=== PATIENT | male | born 1955 | race Caucasian/White ===

== ENCOUNTER 2024-11-02 09:24 | Emergency (ER) | payer OTHER, SELFPAY ==
[2024-11-02 09:30] VITALS: BP 155/102
[2024-11-02 09:58] LABS: % Basophils 0.2 % (0-2); % Eosinophils 0.1 % (0-6); % Immature Granulocytes 0.3 % (0-0.5); % Lymphocytes 6.3 % (20.5-51.1); % Monocytes 5.2 % (1.7-9.3); % Neutrophils 87.9 % (42.2-75.2); Absolute Lymphocytes 0.8 10^3/uL (1.2-3.4); Absolute Monocytes 0.6 10^3/uL (0.1-0.6); Absolute Neutrophils 10.8 10^3/uL (1.4-6.5); Hematocrit 52.2 % (39.0-52.0); Hemoglobin 17.7 g/dL (13.0-18.0); Mean Corp Hgb Conc. 33.9 g/dL (33.0-37.0); Mean Corpuscular Hgb 31.6 pg (27.0-31.0); Mean Corpuscular Volume 93.2 fL (80.0-94.0); Mean Platelet Volume 10.1 fL (7.4-10.4); Nucleated Red Blood Cells % 0 % (-); Platelet Count 332 10^3/uL (130-400); White Blood Cell Count 12.2 10^3/uL (4.8-10.8)
[2024-11-02 10:02] LABS: ALT (SGPT) 22 U/L (0-50); AST (SGOT) 29 U/L (17-59); Albumin 5.1 g/dl (3.5-5.0); Alkaline Phosphatase 66 U/L (38-126); Blood Urea Nitrogen 37 mg/dl (9-20); Calcium 10.6 mg/dl (8.4-10.2); Carbon Dioxide 31 mmol/L (22-30); Chloride 96 mmol/L (98-107); Glucose 142 mg/dl (70-99); Sodium 140 mmol/L (135-145); Total Bilirubin 1.3 mg/dl (0.2-1.3); Total Protein 7.8 g/dl (6.3-8.2); eGFR 58.73
--- NOTE | 2024-11-02 11:26 | ED.GENMED ---
History of Present Illness
General
Chief Complaint: Abdominal Symptoms
Time Seen by Provider: 11/02/24 10:57
History of Present Illness
History of Present Illness:
69-year-old male presents to the emergency department for evaluation of intractable vomiting for the past 2 days. He reports that prior to the onset of symptoms he had diffuse lower cramping that is since subsided. Now denies any pain simply
intractable vomiting. No fevers or chills. No diarrhea. No lower urinary tract voiding symptoms. 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
Review of Systems
Review of Systems
Allergies reviewed?: Yes
All Other Systems: ROS reviewed and negative except as documented in HPI and ROS
Phy Exam
Physical Exam
Physical Exam:
GEN: Well appearing, NAD, WDWN
HEENT: Oral mucosa moist, no scleral icterus
Cardiac: Regular rate
Lung: No respiratory distress, no tachypnea
Abdomen: Soft, grossly nontender, upper abdominal ventral hernia
MSK: No gross deformity or injuries
Skin: Good color, no pallor or jaundice, no rashes
Neuro: AO x3, moves all extremities freely
Psych: Calm, cooperative
Course
Orders/Labs/Results
Orders:
Orders
11/02/24 09:35
Complete Blood Count/With Diff Urgent
Comprehensive Metabolic Panel Urgent
11/02/24 11:21
0.9% Sodium Chloride 1000 ml [Nss] 1,000 ml IV BOLUS
Ondansetron Injectable [Zofran] 4 mg IV NOW STA
11/02/24 12:38
Famotidine [Pepcid] 20 mg IV NOW STA
Pantoprazole [Protonix IV] 40 mg IV NOW STA
Abnormal Lab Results
11/02/24
09:35
WBC 12.2 H 10^3/uL
(4.8-10.8)
Hct 52.2 H %
(39.0-52.0)
MCH 31.6 H pg
(27.0-31.0)
Absolute Neuts (auto) 10.8 H 10^3/uL
(1.4-6.5)
Absolute Lymphs (auto) 0.8 L 10^3/uL
(1.2-3.4)
Neutrophils % 87.9 H %
(42.2-75.2)
Lymphocytes % 6.3 L %
(20.5-51.1)
Chloride 96 L mmol/L
(98-107)
Carbon Dioxide 31 H mmol/L
(22-30)
BUN 37 H mg/dl
(9-20)
Glucose 142 H mg/dl
(70-99)
Calcium 10.6 H mg/dl
(8.4-10.2)
Albumin 5.1 H g/dl
(3.5-5.0)
11/02/24 09:35
11/02/24 09:35
Vital Signs
Initial and Last Documented VS:
Initial Vital Signs
Temp Pulse Resp BP Pulse Ox
97.5 F 85 16 155/102 98
11/02/24 09:30 11/02/24 09:30 11/02/24 09:30 11/02/24 09:30 11/02/24 09:30
Last Documented Vital Signs
Temp Pulse Resp BP Pulse Ox
97.5 F 82 18 160/94 98
11/02/24 09:30 11/02/24 15:38 11/02/24 15:38 11/02/24 15:38 11/02/24 15:38
MDM/Problems Addressed
MDM/Problems Addressed:
Likely self-limited viral syndrome. He has a benign abdominal exam thus no indication for CT scan at this time. Labs are reassuring. Improved with IV fluids and antiemetics as well as anti-GERD medications. Discussed supportive care
*Critical Care Note
Total Time (30-74mins, 75-104mins- exclusive of procedures): Not Applicable
ED Attending Note
-
Portions of this chart may have been created with voice recognition software.� Occasional wrong word or��sound alike� substitutions may have occurred due to the inherent limitations of voice recognition software.
Discharge Plan
Departure
Patient Disposition: Home (Routine Discharge)
Date of Disposition: 11/02/24
Time of Disposition: 15:15
Patient with high blood pressure during this ER visit?: No
Discharge Problem:
Gastroenteritis
Instructions: Nausea and Vomiting, Adult (DC)
Prescriptions:
New
ondansetron 4 mg tablet,disintegrating
4 mg PO TIDPRN PRN (Reason: nausea/vomiting) Qty: 10 0RF
Referrals:
Gen Pena, DO [Family Provider] -
Interventions
Interventions:
*Risk Screen - Suicide Last Done: 11/02/24 09:32
*General Assessment Last Done: 11/02/24 11:53
*Neglect/Abuse Screening Last Done: 11/02/24 09:32
*ED COVID-19 Vaccine History Last Done: 11/02/24 11:53
*Nursing Disposition Last Done: 11/02/24 15:38
ZB-Oppeik-Lolnbbuqeg Assessment Last Done: 11/02/24 11:53
Discharge Date and Time
Discharge Date/Time: 11/02/24 15:40
Print Language: GUATEMALAN
[2024-11-02] MEDS: ZOFRAN 4 MG IV (11:50)
[2024-11-02] MEDS: NSS 1000 IV (11:50)
[2024-11-02 11:53] VITALS: BP 165/104
[2024-11-02] MEDS: PROTONIX IV 40 MG IV (12:45)
[2024-11-02] MEDS: PEPCID 20 MG IV (12:45)
[2024-11-02 15:38] VITALS: BP 160/94
== END 2024-11-02 15:40 | disposition home or self-care (01) ==
LOC: EMR 09:24
PROVIDERS: Emergency Medicine; EMERGENCY PHYSICIAN Emergency Medicine; FAMILY PHYSICIAN Family Medicine
DX: K52.9 Noninfective gastroenteritis and colitis, unspecified (principal); Z90.81 Acquired absence of spleen
CPT/HCPCS: 96374; 96375; 96361; 99284; 80053; 85025

== ENCOUNTER 2024-11-05 04:33 | Inpatient (IN) | payer OTHER, SELFPAY ==
[2024-11-04 22:29] VITALS: BP 153/99
[2024-11-04 23:05] LABS: % Basophils 0.4 % (0-2); % Eosinophils 0.1 % (0-6); % Immature Granulocytes 0.4 % (0-0.5); % Lymphocytes 16.5 % (20.5-51.1); % Neutrophils 70.6 % (42.2-75.2); Absolute Lymphocytes 1.9 10^3/uL (1.2-3.4); Absolute Monocytes 1.4 10^3/uL (0.1-0.6); Hematocrit 50.8 % (39.0-52.0); Hemoglobin 17.3 g/dL (13.0-18.0); Mean Corp Hgb Conc. 34.1 g/dL (33.0-37.0); Mean Corpuscular Hgb 31.7 pg (27.0-31.0); Mean Corpuscular Volume 93.2 fL (80.0-94.0); Mean Platelet Volume 10.2 fL (7.4-10.4); Nucleated Red Blood Cells % 0 % (-); Platelet Count 276 10^3/uL (130-400); Red Blood Cell Count 5.45 10^6/uL (4.70-6.10); Red Cell Dist. Width 12.7 % (11.5-14.5); White Blood Cell Count 11.3 10^3/uL (4.8-10.8)
[2024-11-04 23:18] LABS: ALT (SGPT) 32 U/L (0-50); AST (SGOT) 34 U/L (17-59); Albumin 5.1 g/dl (3.5-5.0); Alkaline Phosphatase 76 U/L (38-126); Blood Urea Nitrogen 37 mg/dl (9-20); Calcium 9.8 mg/dl (8.4-10.2); Carbon Dioxide 30 mmol/L (22-30); Chloride 97 mmol/L (98-107); Glucose 133 mg/dl (70-99); Potassium 4.7 mmol/L (3.5-5.1); Sodium 137 mmol/L (135-145); Total Bilirubin 1.2 mg/dl (0.2-1.3); Total Protein 7.9 g/dl (6.3-8.2); eGFR > 60.00
[2024-11-04 23:32] LABS: Lipase 2637 U/L (23-300)
[2024-11-05] VITALS (11 sets, daily range): BP systolic 133–159; BP diastolic 84–99; BMI 25.4; BMI 25.5
[2024-11-05] MEDS: ZOFRAN 4 MG IV ×2 (00:51→02:33)
[2024-11-05] MEDS: NSS 1000 IV (00:52)
[2024-11-05] MEDS: DILAUDID 0.5 MG IV ×2 (01:01→02:34)
--- NOTE | 2024-11-05 01:29 | ED.GENMED ---
History of Present Illness
General
Chief Complaint: Abdominal Symptoms
Source: patient, records and spouse
Time Seen by Provider: 11/05/24 00:36
History of Present Illness
History of Present Illness:
69-year-old male with past medical history of hypertension presenting back to the emergency department after being seen 2 days ago for evaluation of persistent abdominal pain, nausea and vomiting and difficult time tolerating p.o. Patient was
diagnosed with possible gastroenteritis and states that while initially feeling better symptoms returned after getting home. Notes today pain was worse described to be generalized, nonradiating, constant sharp stabbing sensation. Denies any
fevers, chills, rigors. Notes recently treated for prostatitis with a 7-day course of Levaquin and had been experiencing urinary urgency/frequency at that time which is now resolved. No other new symptoms at this time.
Past History
Past History
ED Past Medical History: HTN
ED Past Surgical History: Other (Splenectomy)
Social History
Tobacco: Non-smoker
Alcohol: None
Drug: None
Personal:
Living: with family
Review of Systems
Review of Systems
All Other Systems: ROS reviewed and negative except as documented in HPI and ROS
Phy Exam
Physical Exam
Physical Exam:
GENERAL: Alert , in no apparent distress
EYE: clear conjunctiva b/l
HEAD: NCAT
ENT: o/p clr, mmm.
CARDIAC: Regular rate and rhythm .
LUNGS: Clear breath sounds bilaterally, no acute respiratory distress, no wheezes/rales/rhonchi
ABDOMEN: Firm and diffusely tender, normoactive bowel sounds, no r/g, no cvat
NEUROLOGICAL: Alert and oriented
SKIN: Warm and dry, skin intact.
MUSCULOSKELETAL: well perfused.
PSYCH: Normal and appropriate interaction.
Scores
Heart Failure Risk
Heart Failure Risk Score: Not Applicable
Heart Score for Chest Pain Patients
STEMI patient?: Not applicable
Withdrawal Assessment of Alcohol
Withdrawal Assessment Completed?: Not applicable
Course
Orders/Labs/Results
Orders:
Orders
11/04/24 22:38
Complete Blood Count/With Diff Urgent
Comprehensive Metabolic Panel Urgent
Lipase Urgent
11/05/24 00:37
CT Abd/pelvis W Iv Cont Urgent
Comment:
Reason For Exam: pancreatitis, intractable vomiting
0.9% Sodium Chloride 1000 ml [Nss] 1,000 ml IV BOLUS
Ondansetron Injectable [Zofran] 4 mg IV NOW STA
11/05/24 01:00
HYDROmorphone [Dilaudid] 0.5 mg .ROUTE .STK-MED ONE
11/05/24 01:01
HYDROmorphone [Dilaudid] 0.5 mg IV NOW STA
11/05/24 02:25
NG Tube [GI tube insertion- Treatment] ONCE
11/05/24 02:32
Ondansetron Injectable [Zofran] 4 mg .ROUTE .STK-MED ONE
11/05/24 02:33
Ondansetron Injectable [Zofran] 4 mg IV NOW STA
11/05/24 02:34
HYDROmorphone [Dilaudid] 0.5 mg IV NOW STA
11/05/24 02:45
Lactic Acid Q4H
Comment: CANCEL 2nd LACTIC ACID IF 1st LACTIC ACID IS LESS THAN 2
11/05/24 06:45
Lactic Acid Q4H
Comment: CANCEL 2nd LACTIC ACID IF 1st LACTIC ACID IS LESS THAN 2
Abnormal Lab Results
11/04/24
22:38
WBC 11.3 H 10^3/uL
(4.8-10.8)
MCH 31.7 H pg
(27.0-31.0)
Absolute Neuts (auto) 8.0 H 10^3/uL
(1.4-6.5)
Absolute Monos (auto) 1.4 H 10^3/uL
(0.1-0.6)
Lymphocytes % 16.5 L %
(20.5-51.1)
Monocytes % 12.0 H %
(1.7-9.3)
Chloride 97 L mmol/L
(98-107)
BUN 37 H mg/dl
(9-20)
Glucose 133 H mg/dl
(70-99)
Albumin 5.1 H g/dl
(3.5-5.0)
Lipase 2637 H* U/L
(23-300)
11/04/24 22:38
11/04/24 22:38
Vital Signs
Initial and Last Documented VS:
Initial Vital Signs
Temp Pulse Resp BP Pulse Ox
97.9 F 90 18 153/99 100
11/04/24 22:29 11/04/24 22:29 11/04/24 22:29 11/04/24 22:29 11/04/24 22:29
Last Documented Vital Signs
Temp Pulse Resp BP Pulse Ox
97.9 F 90 18 159/99 88
11/04/24 22:29 11/04/24 22:29 11/04/24 22:29 11/05/24 01:08 11/05/24 01:30
MDM/Problems Addressed
Differential Diagnosis Includes:
Dehydration, acute kidney injury, appendicitis, cholecystitis, pancreatitis, diverticulitis, pyelonephritis, prostatitis
MDM/Problems Addressed:
69-year-old male presenting back to the emergency department after being seen earlier in the week for persistent nausea vomiting and abdominal pain. Patient with no relief with mrca-uke-zifxozt medications. Labs were initiated on her which
revealed a leukocytosis of 11,000 and pancreatitis with a lipase level of greater than 2600. Patient denies any history of pancreatitis in the past. Given the pain as well as lab findings will obtain CT for further evaluation for potential
gallstone pancreatitis. Symptomatic control with Dilaudid, Zofran and fluids. Patient to be admitted.
*Radiology
Radiology exam reviewed: radiology read reviewed
*Pulse Oximetry
Patient hypoxic: no
*Critical Care Note
Total Time (30-74mins, 75-104mins- exclusive of procedures): Not Applicable
Data Reviewed
Review of Other/Old Records Reveals: Labs and Records
Patient Management
Discussion with other providers: Hospitalist, Solderer Assembler and Radiologist
Escalation/DeEscalation of care consider admission/obs:
Informed by radiology that patient has a small bowel obstruction likely related to an internal hernia. Lactic acid was added to lab work given the reported hernia. I notified general surgery who reviewed case and is requesting NG tube to be
placed. Surgery will see the patient in the morning. Hospitalist team was also notified and accepts patient for continued evaluation and treatment.
ED Attending Note
-
Portions of this chart may have been created with voice recognition software.� Occasional wrong word or��sound alike� substitutions may have occurred due to the inherent limitations of voice recognition software.
Discharge Plan
Departure
Patient Disposition: Admit
Date of Disposition: 11/05/24
Time of Disposition: 02:18
Presentation/result/management discussed w/ accepting MD/DO: Hospitalist
Discharge Problem:
Small bowel obstruction, Ventral hernia, Pancreatitis
Prescriptions:
No Action
ondansetron 4 mg tablet,disintegrating
4 mg PO TIDPRN PRN (Reason: nausea/vomiting) Qty: 10 0RF
Referrals:
Gen Pena, DO [Family Provider] -
Interventions
Interventions:
*Risk Screen - Suicide Last Done: 11/04/24 22:29
*General Assessment Last Done: 11/04/24 22:29
*Neglect/Abuse Screening Last Done: 11/05/24 00:56
ED- Fall Risk Assessment Last Done: 11/05/24 00:56
*ED COVID-19 Vaccine History Last Done: 11/04/24 22:29
PG-Hamsdi-Mgxwujoiua Assessment Last Done: 11/05/24 00:56
Discharge Date and Time
Print Language: DIVEHI
[2024-11-05 03:02] LABS: Lactic Acid 1.3 mmol/L (0.7-2.0)
--- NOTE | 2024-11-05 04:09 | HPS.HSE ---
Family Physician
-
Family Physician: Gen Pena
Chief Complaint
-
Abdominal pain
History of Present Illness
69-year-old with past medical history significant for hyperlipidemia, hypertension, who presents to the emergency department with abdominal pain.
Patient was seen in the ED 2 days ago for persistent abdominal pain nausea and vomiting. He had was gastroenteritis diagnosed then and was initially feeling better but ultimately his symptoms returned after returning home. Patient reports
abdominal pain that is nonradiating constant stabbing sensation. He denies any diarrhea, melena or hematochezia. Denies any fevers chills. Patient denies any chest pain. He denies shortness of breath or dyspnea on exertion.
Patient had a recent prostatitis for which he completed 7-day course of Levaquin with resolution of his urinary symptoms. Spouse believes pancreatitis may be due to Levaquin.
He denies history of gallstones. Denies alcohol use.
In the emergency department he was afebrile, blood pressure was 160/99 with a pulse of 90 satting 96% on room air. CBC is unremarkable. Electrolytes were within normal limits with normal creatinine of 1.1. Glucose was normal. Lipase was elevated
at [address] of the abdomen shows dilated loops of small bowel measuring up to 4.8 cm compatible with small bowel obstruction with transition point within the central abdomen likely related to internal hernia.
Medical History
Past Medical History
Past Medical History: Reports HTN and Hypercholesterolemia
Past Surgical History: Reports Orthopedic (Left ankle surgery) and Other (Splenectomy)
Social History
Tobacco: Non-smoker
Alcohol: None
Drug: None
Personal:
Living: With Family
Family History
Family History: Not pertinent
Allergies / Home Medications
Allergies reflects when Allergies were last updated in [facility].
Home Medications with original date entered in [facility]
Allergy/Medication List:
Allergies
Allergy/AdvReac Type Severity Reaction Status Date / Time
No Known Allergies Allergy Unverified 11/02/24 09:32
Home Medications
ondansetron 4 mg disintegrating tablet 4 mg PO TIDPRN PRN nausea/vomiting #10 tabs 11/02/24
Atorvastatin Calcium 20 MG Take 1 tablet by mouth once daily Orally Once a day for 90 days Active
Vitamin B Complex - as directed Orally once a week Active
Vitamin D3 50 MCG (1999 UT) 1 capsule Orally Once a day Active
Lisinopril 5 MG 1-1/2 tablets Orally Once a day for 90 days Active
Tamsulosin HCl 0.4 MG 1 capsule Orally Once a day for 30 day(s) Oct, Active
Review of Systems
-
History Source: Patient
Constitutional: Reports No Symptoms
EENT: Reports No Symptoms
Respiratory: Reports No Symptoms
Cardiac: Reports No Symptoms
Abdomen/GI: Reports Abdominal Pain, Nausea and Vomiting
: Reports No Symptoms
Musculoskeletal: Reports No Symptoms
Skin: Reports No Symptoms
Neurological: Reports No Symptoms
Endocrine: Reports No Symptoms
Hematologic/Lymphatic: Reports No Symptoms
Psych: Reports No Symptoms
Physical Exam
Vital Signs
Vital Signs
Temp Pulse Resp BP Pulse Ox
97.9 F 90 18 159/99 88
11/04/24 22:29 11/04/24 22:29 11/04/24 22:29 11/05/24 01:08 11/05/24 01:30
Physical Exam
General: Well Developed, Well Nourished, No Apparent Distress and Comfortable
HEENT: NormoCephalic, Anicteric, Moist mucous membranes and Atraumatic
Respiratory: Clear
Cardiac: S1/S2 and Regular Rhythm
GI: Soft, Non Tender and Non Distended
Rectal: Deferred by Provider
Genito-urinary: Deferred by me
Musculoskeletal: No Clubbing, No Cyanosis and No Edema
Skin: Warm
Neuro: AO x 3
Hematologic/Lymphatic: No Lymphadenopathy
Psych: Calm
Laboratory Results
-
11/04/24 22:38
11/04/24 22:38
Laboratory Results
Lactic Acid Cancelled 11/05/24 06:45
Total Bilirubin 1.2 mg/dl (0.2-1.3) 11/04/24 22:38
AST 34 U/L (17-59) 11/04/24 22:38
ALT 32 U/L (0-50) 11/04/24 22:38
Alkaline Phosphatase 76 U/L (38-126) 11/04/24 22:38
Lipase 2637 U/L (23-300) H* 11/04/24 22:38
Data Reviewed
-
Diagnostic Radiology: Image Personally Visualized and interpreted and Report Reviewed by me
CT Scan: Report Reviewed by me
Lab Data: Labs Reviewed by me
Old Records: Reviewed
Impression/Plan
-
IMPRESSION:
69-year-old with 1 week of abdominal pain found to have pancreatitis as well as possible small bowel obstruction.
PLAN:
1. Pancreatitis - Lipase > 2000, no CT findings concerning for severe pancreatitis, gall stones or biliary obstruction. No ETOH use. Pnacreatitis after 9 days of levaquin which is a possible side effect although rate ( < 1%)
- admit to med/surg
- stopped levaquin
- npo
- iv fluid with LR
- pain control and antiemetics
- advance diet pending resolution of SBO
- checking triglyceride and trending lft in am to rule out other cause
2. SBO - h/o splenectomy. Has a ventral hernia with loop of bowel with transition point. Possilby increased intra abd pressure resulted in pushing bowel into hernia. No obvious incarceration.
- NG tube placed and patient had immediate relief, with reduced gassous distension. Only small amount of billous fluid removed
- serial examinations
- NPO and IV fluids as above
- surgery consulted and aware
3. HTN
- holding lisinopril for now
DVT PPX - heparin sq
Code status - full code
[2024-11-05] MEDS: D5LR 1000 IV ×2 (09:58→17:02)
[2024-11-05] MEDS: HEPARIN 5000 UNITS SC ×2 (10:04→17:30)
--- NOTE | 2024-11-05 13:39 | CON.GS ---
Consultation
-
Date/Time Consultation Requested: 11/05/24816
Requesting Provider: Lei Landis
Reason for Consultation: sbo
Medical History
-
Chief Complaint: n/v
History of Present Illness:
Mr. Bansal is a 69 yo male with h/o splenectomy as a child after a football injury and HTN who presents through the ED with nausea and vomiting since Wednesday (11/01). He reports he was in his normal state of health when he developed a UTI and was
prescribed Levaquin for a 2 week course approximately 2 weeks ago. He took a week of this medication until Wednesday when he noted abdominal pain, GI upset and some nausea. He discontinued the medication d/t concern for side effects and while the
abdominal pain improved/resolved, nausea persisted. He presented on through the ED and discharged to home as he was feeling better with zofran. He has been intermittently vomiting since that time with recent worsening of symptoms causing
him to present through the ED again for evaluation. An ngt was placed prior to exam, with relief in symptoms of nausea. The abdomen is mildly distended on exam but nontender. He notes that he has been passing a good amount of flatus.
Past Medical History
Past Medical History: HTN and Hypercholesterolemia
Past Surgical History: Orthopedic (left finger surgery) and Other (Splenectomy at age of 7)
Social History
Tobacco: Non-Smoker
Alcohol: Occasional
Personal:
Living: With Family
Family History
Family History: Reviewed & Not Pertinent
Allergies / Home Medications
Allergy/AdvReac Type Severity Reaction Status Date / Time
No Known Allergies Allergy Unverified 11/02/24 09:32
�Medication �Instructions �Recorded �Confirmed �Type
ondansetron 4 mg disintegrating 4 mg PO TIDPRN PRN nausea/vomiting 11/02/24 11/05/24 Rx
tablet #10 tabs
atorvastatin 20 mg tablet (Lipitor) 20 mg PO QPM 11/05/24 11/05/24 History
calcium carbonate (Tums) 200 mg PO BIDPRN PRN gerd 11/05/24 11/05/24 History
lisinopril 5 mg tablet 5 mg PO DAILY 11/05/24 11/05/24 History
Review of Systems
-
History Source: Patient and Family
All other systems: Negative unless noted
A 10 point review of systems was completed, and was negative except as per HPI.
Physical Exam
Vital Signs
Temp Pulse Resp BP Pulse Ox
97.9 F 90 18 159/99 88
11/04/24 22:29 11/04/24 22:29 11/04/24 22:29 11/05/24 01:08 11/05/24 01:30
11/04/24 11/05/24 11/06/24
06:59 06:59 06:59
Actual Weight 75.9 kg
Body Mass Index (BMI) 25.4
Lab Results
11/04/24 22:38
11/04/24 22:38
WBC 11.3 10^3/uL (4.8-10.8) H 11/04/24 22:38
Hgb 17.3 g/dL (13.0-18.0) 11/04/24 22:38
Hct 50.8 % (39.0-52.0) 11/04/24 22:38
Plt Count 276 10^3/uL (130-400) 11/04/24 22:38
Abs Immat Gran (auto) 0.0 10^3/uL (0-0.05) 11/04/24 22:38
Neutrophils % 70.6 % (42.2-75.2) 11/04/24 22:38
Physical Exam
General: Well Developed and Well Nourished
HEENT: Normocephalic
GI: Soft, Non Tender, Distended (minimal) and Other (NGT with brown outputs)
Skin: Warm and Dry
Neuro: Awake, Alert and AO x 3
Psych: Calm
Data Reviewed
-
CT Scan: Image Personally Visualized and interpreted, Report Reviewed by me, Discussed with Patient and Discussed with Family
Medical Tests (Nuc Med, Echo etc): Image Personally Visualized and interpreted
Labs: Labs Reviewed by me, Discussed with Physician and Discussed with Patient
Old Records: Reviewed
Assessment / Plan
-
69 yo male with h/o splenectomy developed abdominal pain while on levaquin and discontinued use on Wednesday. Pain improved but presented with persistent nausea/vomiting. Symptomatic relief with NGT placement. Continues to pass flatus.
Lactase elevated which is consistent with pancreatitis with normal LFT's. US with distended gallbladder with small polyp but no stones. CT imaging with gallbladder not tensely distended but enlarged, no stones seen on this study. No signs of
pericholecystic edema/wall thickening to suggest cholecystitis. Low suspicion for gallstone mediated pancreatitis given these findings. Suspect secondary to recent Levaquin usage. Pain currently resolved.
CT with pSBO (adhesive) vs reactive ileus secondary to pancreatitis.
AFVSS
Leukocytosis present
--Continue NPO with NGT for decompression
--IVF while NPO
--Analgesics/Antiemetics prn
--Will follow exams/labs for improvement
No emergent surgery planned for today, will follow for continued improvement with nonoperative measures
--- NOTE | 2024-11-05 16:17 | W.PN.HOSP.TC ---
Addendum entered and electronically signed by Akin Manuel MD 11/05/24 16:32:
as per Dr. Kam, no need for abx at this time
Original Note:
Today's Communication/Plan
-
recheck labs
Assessment / Plan
Assessment / Plan
1. Pancreatitis - Lipase > 2000, no CT findings concerning for severe pancreatitis, gall stones or biliary obstruction. No ETOH use. Pancreatitis after 9 days of levaquin which is a possible side effect although rate ( < 1%)
- admit to med/surg
- stopped levaquin
- npo, NG tube decompression tocontinue
- iv fluid with LR
- pain control and antiemetics
- checking triglyceride and trending lft in am to rule out other cause
2. SBO - h/o splenectomy. Has a ventral hernia with loop of bowel with transition point. Possibly increased intra abd pressure resulted in pushing bowel into hernia. No obvious incarceration.
- NG tube placed and patient had immediate relief, with reduced gaseous distension. Only small amount of billous fluid removed
- serial examinations
- NPO and IV fluids as above
- surgery consulted and aware, reviewed. Unclear whether pancreatitis or adhesive bowel disease is cause vs effect
Will need to continue NG decompression for now, recheck labs and re-evaluate pending progression. consider obstruction series in AM depending on clinical response
CT scan:1. ACUTE SMALL BOWEL OBSTRUCTION which is likely to an obstructing adhesive band in the midabdomen. An internal hernia is an alternative diagnostic possibility.
2. Previous splenectomy.
3. LARGE 10.1 cm COMPLEX LEFT RENAL CYST (probably benign and less likely renal cell carcinoma).
4. Small 1.5 cm lesion in the right lobe of the liver (probably a benign primary hepatic tumor and less likely malignancy).
5. Moderate diverticulosis in the descending and sigmoid colon.
6. Moderately enlarged prostate gland.
7. 2.8 cm jackstone calculus in the urinary bladder.
8. Severe discogenic degenerative disease at L4/L5.
Abd US: 1. Distended gallbladder containing multiple small polyps.
2. No sonographic evidence for cholelithiasis, acute cholecystitis, or biliary obstruction.
3. Previous splenectomy.
4. Large 10.0 cm complex left lower pole renal cyst.
3. HTN
- holding lisinopril for now
DVT PPX - heparin sq
Code status - full code
reviewed multiple concerns with in room
Anticipated Discharge: > 48 hours
Subjective/Interval History
-
Date of Service: November 05, 2024
Feels much better since NG tube placed
Objective Data
-
Vital Signs:
Vital Signs
Temp Pulse Resp BP Pulse Ox
97.9 F 90 18 152/89 96
11/04/24 22:29 11/04/24 22:29 11/04/24 22:29 11/05/24 10:00 11/05/24 10:00
Review of Systems
-
History Source: Patient, Family ( at bedside) and Physician (reviewed with Dr. Kam)
Constitutional: Denies Fever
EENT: Reports No Symptoms Reported
Respiratory: Reports No Symptoms
Cardiac: Reports No Symptoms
Abdomen/GI: Reports Abdominal Pain (markedly improved); Denies Nausea or Vomiting
Skin: Reports No Symptoms
Neuro: Reports No Symptoms
Physical Exam
-
General: Well Developed, Well Nourished and No Apparent Distress
HEENT: Normocephalic, Atraumatic and Moist Mucous Membranes
Respiratory: Clear to Auscultation (on shallow respirations)
Cardiac: Regular Rhythm
GI: Soft, Nontender (to light pressure), Normal Bowel Sounds, Distended (moderately) and Other (NG tube with significant fecal drainage)
Neuro: Awake, Alert and Oriented
[2024-11-05 17:16] LABS: % Basophils 0.7 % (0-2); % Eosinophils 0.6 % (0-6); % Immature Granulocytes 0.3 % (0-0.5); % Lymphocytes 25.5 % (20.5-51.1); % Monocytes 14.8 % (1.7-9.3); % Neutrophils 58.1 % (42.2-75.2); Absolute Basophils 0.1 10^3/uL (0-0.2); Absolute Lymphocytes 1.8 10^3/uL (1.2-3.4); Absolute Neutrophils 4.1 10^3/uL (1.4-6.5); Hematocrit 44.1 % (39.0-52.0); Hemoglobin 14.9 g/dL (13.0-18.0); Mean Corp Hgb Conc. 33.8 g/dL (33.0-37.0); Mean Corpuscular Hgb 31.4 pg (27.0-31.0); Mean Corpuscular Volume 92.8 fL (80.0-94.0); Nucleated Red Blood Cells % 0 % (-); Platelet Count 244 10^3/uL (130-400); Red Blood Cell Count 4.75 10^6/uL (4.70-6.10); Red Cell Dist. Width 12.7 % (11.5-14.5)
[2024-11-05 17:24] LABS: Blood Urea Nitrogen 28 mg/dl (9-20); Calcium 8.7 mg/dl (8.4-10.2); Carbon Dioxide 33 mmol/L (22-30); Chloride 102 mmol/L (98-107); Estimated Creatinine Clearance 66 ml/min; Glucose 106 mg/dl (70-99); Lipase 632 U/L (23-300); Potassium 3.7 mmol/L (3.5-5.1); Sodium 141 mmol/L (135-145); eGFR > 60.00
[2024-11-06] MEDS: HEPARIN 5000 UNITS SC ×3 (00:28→15:57)
[2024-11-06] MEDS: D5LR 1000 IV ×2 (00:29→05:52)
--- NOTE | 2024-11-06 03:49 | PTCARENOTE ---
19:40 pt rec'vd from ER zay horn NGT, low inter suction, red/black drainage in container. IVF D5LR infusing at 150cc/hr via L AC . vs stable, denied pain. Abd hypo bs, flat firm WNL for pt some tenderness when palpated RQ. oriented to unit
[2024-11-06 05:34] LABS: Hematocrit 41.7 % (39.0-52.0); Hemoglobin 14.2 g/dL (13.0-18.0); Mean Corp Hgb Conc. 34.1 g/dL (33.0-37.0); Mean Corpuscular Hgb 32.1 pg (27.0-31.0); Mean Corpuscular Volume 94.1 fL (80.0-94.0); Mean Platelet Volume 10.4 fL (7.4-10.4); Platelet Count 221 10^3/uL (130-400); Red Blood Cell Count 4.43 10^6/uL (4.70-6.10); Red Cell Dist. Width 12.6 % (11.5-14.5); White Blood Cell Count 7.7 10^3/uL (4.8-10.8)
[2024-11-06 06:12] LABS: ALT (SGPT) 20 U/L (0-50); AST (SGOT) 24 U/L (17-59); Albumin 3.4 g/dl (3.5-5.0); Alcohol < 10 mg/dl; Alkaline Phosphatase 55 U/L (38-126); Blood Urea Nitrogen 23 mg/dl (9-20); Calcium 8.6 mg/dl (8.4-10.2); Carbon Dioxide 33 mmol/L (22-30); Chloride 103 mmol/L (98-107); Direct Bilirubin 0.3 mg/dl (0.0-0.4); Estimated Creatinine Clearance 63 ml/min; Glucose 127 mg/dl (70-99); Lipase 623 U/L (23-300); Potassium 3.7 mmol/L (3.5-5.1); Sodium 141 mmol/L (135-145); Total Protein 5.8 g/dl (6.3-8.2); Triglycerides 112 mg/dl (10-149); eGFR > 60.00
[2024-11-06 08:20] VITALS: BP 166/89
--- NOTE | 2024-11-06 09:40 | W.PN.GS2 ---
Addendum entered and electronically signed by Angel Escalante MD 11/06/24 13:41:
I saw and examined the patient independently.
The Podiatric Physician's note was reviewed and I agree with the note, assessment and plan except where noted below.
Comment: 69-year-old male presents with pancreatitis of unclear etiology Levaquin (for recent UTI) versus occult gallstone not seen on ultrasound imaging male with reactive ileus versus small bowel obstruction.
Clamp trial NG tube. If output low, okay to remove and start clears.
IV fluids.
No role for antibiotics at this time.
Out of bed and ambulate.
We reviewed signs and symptoms to look out for and possible sequela of pancreatitis.
If he has recurrent episodes of pancreatitis despite stopping Levaquin he understands that he should see general surgeon. In addition, if he has recurrent UTIs he will see urologist for workup.
General surgery will continue to follow
Original Note:
Today's Communication / Plan
-
clamp trial of ngt
Assessment / Plan
-
69 yo male presenting with pancreatitis of uncertain etiology with partial small bowel obstruction versus reactive ileus
AFVSS
Passing flatus, abd exam benign
Lipase trending down, LFT's wnl
--Clamp trial of NGT, return to suction if high residula, otherwise will remove and trial on clears
--OOB/Ambulate
--Medical management as per primary team
Subjective Data
-
Date of Service: November 06, 2024
Patient seen and examined at bedside with Dr. Escalante. Denies n/v. Passing a good amount of flatus. Denies abdominal pain or distention.
Objective Data
-
Intake and Output
11/05/24 11/06/24 11/07/24
06:59 06:59 06:59
Intake Total 1650 / 1650
Output Total 1700 / 1700
Balance -50 / -50
Intake:
Oral fluids 0 / 0
IV fluids (Total) 1650 / 1650
IV piggybacks 0 / 0
Amount instilled into GI Tube ( 0 / 0
Total)
[place] Sump 0 / 0
Output:
Gastrointestinal tube output ( 800 / 800
Total)
[place] Sump 800 / 800
Urine, Voided 900 / 900
Vital Signs
Temp Pulse Resp BP Pulse Ox
97.7 F 64 16 166/89 97
11/06/24 08:20 11/06/24 08:20 11/06/24 08:20 11/06/24 08:20 11/06/24 08:20
Lab Results
11/06/24 05:10
11/06/24 05:10
Calcium 8.6 mg/dl (8.4-10.2) 11/06/24 05:10
Total Bilirubin 1.0 mg/dl (0.2-1.3) 11/06/24 05:10
Direct Bilirubin 0.3 mg/dl (0.0-0.4) 11/06/24 05:10
AST 24 U/L (17-59) 11/06/24 05:10
ALT 20 U/L (0-50) 11/06/24 05:10
Alkaline Phosphatase 55 U/L (38-126) 11/06/24 05:10
Total Protein 5.8 g/dl (6.3-8.2) L D 11/06/24 05:10
Albumin 3.4 g/dl (3.5-5.0) L D 11/06/24 05:10
Physical Exam
-
NAD
ABD soft, nd, nt
NGT with light brown/yellow outputs
--- NOTE | 2024-11-06 09:58 | CM ---
Reviewed the chart notes and spoke with the patient at the bedside. Patient currently NPO with NGT to lws. The patient resides with his spouse in a three story home with one step to enter. The patient reports no DME/VN/SNF in the past. The
patient confirmed his pharmacy of choice is [facility] and PCP is Gen Pena. CM continues to be available to patient/family and is monitoring medical plan for needs at discharge.
Plan: Discharge to home when medically stable.
[2024-11-06] MEDS: D5LR 500 IV ×2 (12:25→15:55)
[2024-11-06] MEDS: D5LR IV (12:38)
[2024-11-06 15:50] VITALS: BP 150/87
--- NOTE | 2024-11-06 16:48 | W.PN.HOSP.TC ---
Today's Communication/Plan
-
recheck labs in AM
Assessment / Plan
Assessment / Plan
1. Pancreatitis - Lipase > 2637-->632-->623, no CT findings concerning for severe pancreatitis, gall stones or biliary obstruction. No ETOH use. Pancreatitis after 9 days of levaquin which is a possible side effect although rate ( < 1%)
- admit to med/surg
- stopped levaquin
- start on clears, NG tube decompression stopped
- iv fluid to stop
- pain control and antiemetics
- checking triglyceride and trending lft in am to rule out other cause
2. SBO - h/o splenectomy. Has a ventral hernia with loop of bowel with transition point. Possibly increased intra abd pressure resulted in pushing bowel into hernia. No obvious incarceration.
- NG tube placed and patient had immediate relief, with reduced gaseous distension. Only small amount of billous fluid removed
- serial examinations
- diet advanced, tolerating. Overall feels much better
- surgery input appreciated. Unclear whether pancreatitis or adhesive bowel disease is cause vs effect
but pt improving, diet to be advanced. Potential dc next 24 hrs if continues to improve
CT scan:1. ACUTE SMALL BOWEL OBSTRUCTION which is likely to an obstructing adhesive band in the midabdomen. An internal hernia is an alternative diagnostic possibility.
2. Previous splenectomy.
3. LARGE 10.1 cm COMPLEX LEFT RENAL CYST (probably benign and less likely renal cell carcinoma).
4. Small 1.5 cm lesion in the right lobe of the liver (probably a benign primary hepatic tumor and less likely malignancy).
5. Moderate diverticulosis in the descending and sigmoid colon.
6. Moderately enlarged prostate gland.
7. 2.8 cm jackstone calculus in the urinary bladder.
8. Severe discogenic degenerative disease at L4/L5.
Abd US: 1. Distended gallbladder containing multiple small polyps.
2. No sonographic evidence for cholelithiasis, acute cholecystitis, or biliary obstruction.
3. Previous splenectomy.
4. Large 10.0 cm complex left lower pole renal cyst.
3. HTN
- holding lisinopril for now
DVT PPX - heparin sq
Code status - full code
reviewed multiple concerns with in room
Anticipated Discharge: 24 - 48 hours
Subjective/Interval History
-
Date of Service: November 06, 2024
Generally feels better
Objective Data
-
Labs:
Laboratory Results
11/06/24
05:10
WBC 7.7
Hgb 14.2
Hct 41.7
Plt Count 221
Sodium 141
Potassium 3.7
Chloride 103
Carbon Dioxide 33 H
BUN 23 H
Creatinine 1.0
Glucose 127 H
Calcium 8.6
Total Bilirubin 1.0
AST 24
ALT 20
Alkaline Phosphatase 55
Vital Signs:
Vital Signs
Temp Pulse Resp BP Pulse Ox
98.5 F 61 16 150/87 98
11/06/24 15:50 11/06/24 15:50 11/06/24 15:50 11/06/24 15:50 11/06/24 15:50
I&O
11/05/24 11/06/24 11/07/24
06:59 06:59 06:59
Intake Total 1650 / 1650
Output Total 1700 / 1700
Balance -50 / -50
Review of Systems
-
History Source: Patient and Family ( at bedside)
Constitutional: Denies Fever
EENT: Reports No Symptoms Reported
Respiratory: Reports No Symptoms
Cardiac: Reports No Symptoms
Abdomen/GI: Reports Abdominal Pain (markedly improved); Denies Nausea or Vomiting
Skin: Reports No Symptoms
Neuro: Reports No Symptoms
Physical Exam
-
General: Well Developed, Well Nourished and No Apparent Distress
HEENT: Normocephalic, Atraumatic and Moist Mucous Membranes
Respiratory: Clear to Auscultation (on shallow respirations)
Cardiac: Regular Rhythm
GI: Soft, Nontender, Nondistended, Normal Bowel Sounds and Other (ng tube removed)
Neuro: Awake, Alert and Oriented
[2024-11-06 23:20] VITALS: BP 146/79
[2024-11-07] MEDS: HEPARIN 5000 UNITS SC ×2 (00:14→08:13)
[2024-11-07 06:43] LABS: % Eosinophils 2.5 % (0-6); % Immature Granulocytes 0.3 % (0-0.5); % Lymphocytes 35.6 % (20.5-51.1); % Monocytes 12.3 % (1.7-9.3); % Neutrophils 48.3 % (42.2-75.2); Absolute Basophils 0.1 10^3/uL (0-0.2); Absolute Eosinophils 0.2 10^3/uL (0-0.7); Absolute Lymphocytes 2.4 10^3/uL (1.2-3.4); Absolute Monocytes 0.8 10^3/uL (0.1-0.6); Absolute Neutrophils 3.3 10^3/uL (1.4-6.5); Hematocrit 41.4 % (39.0-52.0); Hemoglobin 13.9 g/dL (13.0-18.0); Mean Corp Hgb Conc. 33.6 g/dL (33.0-37.0); Mean Corpuscular Hgb 31.4 pg (27.0-31.0); Mean Corpuscular Volume 93.7 fL (80.0-94.0); Mean Platelet Volume 10.9 fL (7.4-10.4); Nucleated Red Blood Cells % 0 % (-); Platelet Count 246 10^3/uL (130-400); Red Blood Cell Count 4.42 10^6/uL (4.70-6.10); Red Cell Dist. Width 12.5 % (11.5-14.5); White Blood Cell Count 6.8 10^3/uL (4.8-10.8)
[2024-11-07 06:55] LABS: ALT (SGPT) 17 U/L (0-50); AST (SGOT) 23 U/L (17-59); Albumin 3.3 g/dl (3.5-5.0); Alkaline Phosphatase 56 U/L (38-126); Blood Urea Nitrogen 17 mg/dl (9-20); Calcium 8.4 mg/dl (8.4-10.2); Carbon Dioxide 29 mmol/L (22-30); Chloride 104 mmol/L (98-107); Estimated Creatinine Clearance 70 ml/min; Glucose 90 mg/dl (70-99); Lipase 401 U/L (23-300); Potassium 3.8 mmol/L (3.5-5.1); Sodium 140 mmol/L (135-145); Total Bilirubin 1.2 mg/dl (0.2-1.3); Total Protein 5.7 g/dl (6.3-8.2); eGFR > 60.00
[2024-11-07 07:12] VITALS: BP 159/85
--- NOTE | 2024-11-07 08:01 | W.PN.GS2 ---
Today's Communication / Plan
-
-- ADAT to LRD
Assessment / Plan
-
Patient is a 69 yo M presenting with pancreatitis of uncertain etiology with partial small bowel obstruction versus reactive ileus
AFVSS
Passing flatus, abd exam benign
Lipase trending down, LFT's wnl
ADAT. No plans for surgery during this admission. Presumed diagnosis of pancreatitis secondary to Levaquin use. Discussed that with future episodes of pancreatitis he should consider a gallstone mediated source and seek out general surgery
evaluation to consider cholecystectomy. Questions answered.
--LRD
--OOB/Ambulate
--Medical management as per primary team
-- Call with questions or concerns
Subjective Data
-
Date of Service: November 07, 2024
No complaints. Presenting symptoms epigastric and esophageal pain have resolved. No nausea or vomiting. Passing flatus, no BM. Afebrile.
Objective Data
-
Intake and Output
11/06/24 11/07/24 11/08/24
06:59 06:59 06:59
Intake Total 1650 / 1650 246 / 2460
Output Total 1700 / 1700 1949
Balance -50 / -50 510 / 510
Intake:
Oral fluids 0 / 0 2459 / 2460
IV fluids (Total) 1650 / 1650
IV piggybacks 0 / 0
Amount instilled into GI Tube ( 0 / 0
Total)
[place] Sump 0 / 0
Output:
Gastrointestinal tube output ( 800 / 800
Total)
[place] Sump 800 / 800
Urine, Voided 900 / 900 1949
Other:
Number of approximated MODERATE 5
amounts of urine
Vital Signs
Temp Pulse Resp BP Pulse Ox
98.5 F 62 16 146/79 96
11/06/24 23:20 02/03/25 23:20 11/06/24 23:20 11/06/24 23:20 11/06/24 23:20
Lab Results
11/07/24 05:27
11/07/24 05:27
Calcium 8.4 mg/dl (8.4-10.2) 11/07/24 05:27
Total Bilirubin 1.2 mg/dl (0.2-1.3) 11/07/24 05:27
Direct Bilirubin 0.3 mg/dl (0.0-0.4) 11/06/24 05:10
AST 23 U/L (17-59) 11/07/24 05:27
ALT 17 U/L (0-50) 11/07/24 05:27
Alkaline Phosphatase 56 U/L (38-126) 11/07/24 05:27
Total Protein 5.7 g/dl (6.3-8.2) L 11/07/24 05:27
Albumin 3.3 g/dl (3.5-5.0) L 11/07/24 05:27
Physical Exam
-
gen: NAD
Abd: soft, NT/ND, non-peritoneal, midline incision well healed, umbilical hernia soft, reducible
Patient has a sheridan catheter: No
Patient has a central line: No
--- NOTE | 2024-11-07 11:47 | CM ---
Addendum entered by Beatriz Schmid RN 11/07/24 13:02:
IMM reviewed. Patient for discharge today. Spouse will provide transportation.
Original Note:
Reviewed the chart notes. NGT out, low residue diet. CM continues to be available to patient/family and is monitoring medical plan for needs at discharge.
Plan: Discharge to home when medically stable.
--- NOTE | 2024-11-07 12:32 | W.PN.HOSP.TC ---
Today's Communication/Plan
-
dc to home
Assessment / Plan
Assessment / Plan
1. Pancreatitis - Lipase > 2637-->632-->623-->401, no CT findings concerning for severe pancreatitis, gall stones or biliary obstruction. No ETOH use. Pancreatitis after 9 days of levaquin which is a possible side effect although rate ( < 1%)
- admit to med/surg
- stopped levaquin
- start on clears,diet since advanced to low residue, which he is tolerating, NG tube decompression stopped
- iv fluid to stop
- pain control and antiemetics
2. SBO - h/o splenectomy. Has a ventral hernia with loop of bowel with transition point. Possibly increased intra abd pressure resulted in pushing bowel into hernia. No obvious incarceration.
- NG tube placed and patient had immediate relief, with reduced gaseous distension. Only small amount of billous fluid removed. Fully resolved
- serial examinations
- diet advanced, tolerating. Overall feels much better
- surgery input appreciated. Unclear whether pancreatitis or adhesive bowel disease is cause vs effect, better and will dc
CT scan:1. ACUTE SMALL BOWEL OBSTRUCTION which is likely to an obstructing adhesive band in the midabdomen. An internal hernia is an alternative diagnostic possibility.
2. Previous splenectomy.
3. LARGE 10.1 cm COMPLEX LEFT RENAL CYST (probably benign and less likely renal cell carcinoma).
4. Small 1.5 cm lesion in the right lobe of the liver (probably a benign primary hepatic tumor and less likely malignancy).
5. Moderate diverticulosis in the descending and sigmoid colon.
6. Moderately enlarged prostate gland.
7. 2.8 cm jackstone calculus in the urinary bladder.
8. Severe discogenic degenerative disease at L4/L5.
Abd US: 1. Distended gallbladder containing multiple small polyps.
2. No sonographic evidence for cholelithiasis, acute cholecystitis, or biliary obstruction.
3. Previous splenectomy.
4. Large 10.0 cm complex left lower pole renal cyst.
3. HTN
- holding lisinopril for now. Resume post dc
DVT PPX - heparin sq
Code status - full code
dc to home
see dictated note
More than 30 minutes spent in discharge including
Final examination of the patient
Summarizing hospital stay
Instructions for continuing care to all relevant caregivers
Preparation of discharge records, prescriptions, and referral forms
Total time spent (in minutes): 45
Anticipated Discharge: Today
Subjective/Interval History
-
Date of Service: November 07, 2024
Feels better, had BM, tolerated lunch
Objective Data
-
Labs:
Laboratory Results
11/07/24
05:27
WBC 6.8
Hgb 13.9
Hct 41.4
Plt Count 246
Sodium 140
Potassium 3.8
Chloride 104
Carbon Dioxide 29
BUN 17
Creatinine 0.9
Glucose 90
Calcium 8.4
Total Bilirubin 1.2
AST 23
ALT 17
Alkaline Phosphatase 56
Vital Signs:
Vital Signs
Temp Pulse Resp BP Pulse Ox
98.2 F 60 20 159/85 99
11/07/24 07:12 11/07/24 07:12 11/07/24 07:12 11/07/24 07:12 11/07/24 07:12
I&O
11/06/24 11/07/24 11/08/24
06:59 06:59 06:59
Intake Total 1650 / 1650 2460 / 2460
Output Total 1700 / 1700 1950 / 1949
Balance -50 / -50 510 / 510
Review of Systems
-
History Source: Patient
Constitutional: Denies Fever
EENT: Reports No Symptoms Reported
Respiratory: Reports No Symptoms
Cardiac: Reports No Symptoms
Abdomen/GI: Reports Abdominal Pain (markedly improved/essentially resolved); Denies Nausea or Vomiting
Skin: Reports No Symptoms
Neuro: Reports No Symptoms
Physical Exam
-
General: Well Developed, Well Nourished and No Apparent Distress
HEENT: Normocephalic, Atraumatic and Moist Mucous Membranes
Respiratory: Clear to Auscultation (taking deeper breaths)
Cardiac: Regular Rhythm
GI: Soft, Nontender, Nondistended, Normal Bowel Sounds and Other (ng tube removed)
Neuro: Awake, Alert and Oriented
[2024-11-07 12:45] VITALS: BP 144/82
--- NOTE | 2024-11-07 17:07 | W.DS.TRANS ---
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
-
Discharge Instructions:
Discharge Diagnosis/Procedures Pancreatitis with small bowel obstruction
Diet Low Fiber,Low Residue
Activity No strenuous activity
Driving Restrictions As prior to admission
Bathing Restrictions None
Blood Work CBC, CMP, Lipase in 1 week
Others Tests further evaluation of left renal cyst , with
referral to Urology as per PCP
Instructions:
Stand-Alone Forms:
Changes to Home Medications: No
Discharge Medications:
DC Medications w/original date entered in Gatheredtable
ondansetron 4 mg disintegrating tablet 4 mg PO TIDPRN PRN nausea/vomiting #10 tabs 11/02/24
atorvastatin 20 mg tablet (Lipitor) 20 mg PO QPM High Cholesterol 11/05/24
calcium carbonate (Tums) 200 mg PO BIDPRN PRN gerd 11/05/24
lisinopril 5 mg tablet 5 mg PO DAILY Blood Pressure 11/05/24
Home Medication Changes
Pending Results: No
== END 2024-11-07 13:25 | disposition home or self-care (01) | DRG 388 ==
LOC: 2 SOUTH 04:33
PROVIDERS: Emergency Medicine; Physician Assistant Medical; ADMITTING PHYSICIAN Internal Medicine; ATTENDING PHYSICIAN Internal Medicine; EMERGENCY PHYSICIAN Emergency Medicine; FAMILY PHYSICIAN Family Medicine; OTHER PHYSICIAN Surgery
PROC: 0D9670Z Drainage of Stomach with Drainage Device, Via Natural or Artificial Opening (ICD-10-PCS; 2024-11-05)
DX: K56.600 Partial intestinal obstruction, unspecified as to cause (principal); K85.90 Acute pancreatitis without necrosis or infection, unspecified; I10 Essential (primary) hypertension; K43.9 Ventral hernia without obstruction or gangrene; K56.7 Ileus, unspecified
CPT/HCPCS: 43752; 71045; 74177; 76700; 80048; 80053; 82077; 82248; 83605; 83690; 84478; 85025; 85027; 96374; 96375; 96376; 99285; Q9967

== ENCOUNTER 2024-12-15 06:20 | Day surgery (SDC) | payer OTHER, SELFPAY ==
[2024-12-11 14:22] VITALS: BMI 24.9
--- NOTE | 2024-12-12 14:03 | PTCARENOTE ---
Patients 3/10 ECG abnormal, reviewed by Dr. Cancino- no additional interventions required
[2024-12-15] VITALS (20 sets, daily range): BP systolic 120–161; BP diastolic 69–93; BMI 24.9
[2024-12-15] MEDS: NORMOSOL-R/PLASMALYTE-A 1000 IV (09:31)
[2024-12-15] MEDS: LIPITOR 20 MG PO (18:28)
[2024-12-15] MEDS: VALIUM INJECTION 5 MG IV (22:06)
[2024-12-16 03:05] VITALS: BP 120/71
[2024-12-16 07:20] VITALS: BP 123/80
[2024-12-16] MEDS: ZESTRIL 5 MG PO (08:44)
[2024-12-16] MEDS: FLOMAX 0.4 MG PO (08:45)
--- NOTE | 2024-12-16 10:09 | CM ---
Reviewed the chart notes and spoke with the patient and his significant other at the bedside. The patient resides with his significant other for the past 26 years in a two story home with no steps to enter. The patient reports no DME/VN/SNF. The
patient confirmed his pharmacy of choice is [facility]. CM continues to be available to patient/family and is monitoring medical plan for needs at discharge.
Plan: Discharge to home today with no additional needs being identified at this time. Patient's significant other will provide transportation home.
[2024-12-16 10:57] VITALS: BP 124/78
== END 2024-12-16 11:33 | disposition home or self-care (01) ==
LOC: SDS 06:20
PROVIDERS: ATTENDING PHYSICIAN Specialist; FAMILY PHYSICIAN Family Medicine
DX: N40.1 Benign prostatic hyperplasia with lower urinary tract symptoms (principal); N21.0 Calculus in bladder; R33.8 Other retention of urine
CPT/HCPCS: 52601; 52317; 88300; 88305; 36415; 93005